=== PATIENT | female | born 1965 | race Caucasian/White ===

== ENCOUNTER 2018-11-27 05:20 | Inpatient (IN) | payer BC ==
[2018-11-26 12:23] LABS: HEMATOCRIT 39.8 % (36.0-47.0); HEMOGLOBIN 13.7 g/dL (12.0-15.5); MEAN CORPUSCULAR HEMOGLOBIN 28.3 pg (27.0-33.4); MEAN CORPUSCULAR HGB CONC 34.4 g/dL (32.0-36.0); MEAN CORPUSCULAR VOLUME 82 fl (80-97); PLATELET COUNT 259 10^3/uL (150-450); RED BLOOD COUNT 4.83 10^6/uL (3.72-5.28); RED CELL DISTRIBUTION WIDTH 12.8 % (11.5-14.0); WHITE BLOOD COUNT 5.6 10^3/uL (4.0-10.5)
[2018-11-26 12:30] LABS: APPEARANCE,URINE SLIGHTLY-CLOUDY; BILIRUBIN,URINE NEGATIVE (NEGATIVE); COLOR,URINE YELLOW; GLUCOSE, URINE NEGATIVE (NEGATIVE); KETONES,URINE NEGATIVE (NEGATIVE); LEUKOCYTE ESTERASE,URINE NEGATIVE (NEGATIVE); NITRITE,URINE NEGATIVE (NEGATIVE); PROTEIN,URINE NEGATIVE (NEGATIVE); URINE SPECIFIC GRAVITY 1.008; UROBILINOGEN,URINE NEGATIVE mg/dL (<2.0)
[2018-11-26 12:47] LABS: ALANINE AMINOTRANSFERASE 22 U/L (9-52); ALBUMIN 4.4 g/dL (3.5-5.0); ALKALINE PHOSPHATASE 55 U/L (38-126); ANION GAP 10 (5-19); ASPARTATE AMINO TRANSFERASE 24 U/L (14-36); BILIRUBIN,DIRECT 0.3 mg/dL (0.0-0.4); BILIRUBIN,TOTAL 0.6 mg/dL (0.2-1.3); BLOOD UREA NITROGEN 18 mg/dL (7-20); CALCIUM 9.4 mg/dL (8.4-10.2); CARBON DIOXIDE 30 mmol/L (22-30); CHLORIDE 101 mmol/L (98-107); GLUCOSE 95 mg/dL (75-110); POTASSIUM 4.1 mmol/L (3.6-5.0); SODIUM 141.3 mmol/L (137-145); TOTAL PROTEIN 7.5 g/dL (6.3-8.2)
--- NOTE | 2018-11-26 23:05 | EKG REPORT ---
SEVERITY:- NORMAL ECG - SINUS RHYTHM : Confirmed by: Luis Angel Summers 26-Nov-2018 23:05:10
[~2018-11-27 05:20] MED LIST: CEFAZOLIN 2 GM/D5W RTU 2 GM/50 ML RTUPB IV PRN; LACTATED RINGERS 1000 ML IV PRN; LIDOCAINE 0.5% INJ-PF (5 MG/ML) 50 ML SDV SUBCUT PRN
[2018-11-27] MEDS ORDERED: CEFAZOLIN 2 GM/D5W RTU 2 GM/50 ML RTUPB IV ONE (05:47)
[2018-11-27] MEDS ORDERED: EPHEDRINE SULFATE INJ 50 MG/1 ML AMPULE ONE (07:06)
[2018-11-27] MEDS ORDERED: FENTANYL CITRATE INJ/PF 100 MCG/2 ML AMPUL ONE (07:06)
[2018-11-27] MEDS ORDERED: MIDAZOLAM 2 MG/2 ML INJ ONE (07:06)
[2018-11-27] MEDS ORDERED: PROPOFOL INJ 200 MG/20 ML VIAL IV ONE (07:07)
[2018-11-27] MEDS ORDERED: ACETAMINOPHEN 1,000 MG/100 ML RTUPB IV ONE (07:07)
[2018-11-27] MEDS ORDERED: HYDROMORPHONE HCL INJ/PF 2 MG/ML AMPULE ONE (07:07)
[2018-11-27] MEDS ORDERED: ONDANSETRON HCL INJ/PF 4 MG/2 ML SDV IV PRN (08:07)
[2018-11-27] MEDS ORDERED: DIPHENHYDRAMINE HCL 50 MG/ML VIAL IV PRN (08:07)
[2018-11-27] MEDS ORDERED: OXYCODONE-ACETAMINOPHEN 5-325 MG TABLET PO PRN ×2 (08:07)
[2018-11-27] MEDS ORDERED: MEPERIDINE HCL/PF INJ 25 MG/1 ML DISP.SYRIN IV PRN (08:07)
[2018-11-27] MEDS ORDERED: FENTANYL CITRATE INJ/PF 100 MCG/2 ML AMPUL IV PRN ×3 (08:07)
[2018-11-27] MEDS ORDERED: METHYLENE BLUE 50 MG/10 ML AMPULE ONE (09:13)
[2018-11-27] MEDS ORDERED: SIMETHICONE 80 MG TAB.CHEW PO PRN (09:52)
[2018-11-27] MEDS ORDERED: MEASLES,MUMPS&RUBELLA VACC/PF 0.5 ML VIAL SUBCUT PRN (09:52)
[2018-11-27] MEDS ORDERED: PROMETHAZINE HCL INJ 25 MG/1 ML VIAL IV PRN (09:52)
[2018-11-27] MEDS ORDERED: HYDROMORPHONE HCL INJ/PF 2 MG/ML AMPULE IV PRN (09:52)
[2018-11-27] MEDS ORDERED: ACETAMINOPHEN 1,000 MG/100 ML RTUPB IV PRN (09:52)
[2018-11-27] MEDS ORDERED: ACETAMINOPHEN 325 MG TABLET PO PRN (09:52)
[2018-11-27] MEDS ORDERED: DIPH/PERTUSS(ACELL)/TETANUS VAC/PF 0.5 ML SYR (>=10YO) IM PRN (09:52)
[2018-11-27] MEDS: FENTANYL CITRATE INJ/PF 100 MCG/2 ML AMPUL ONE ×3 (10:00→10:10)
--- NOTE | 2018-11-27 10:05 | Operative Report ---
Operative Report DATE OF SURGERY: 11/27/18 PREOPERATIVE DIAGNOSIS: Fibroid uterus heavy menses pelvic pressure POSTOPERATIVE DIAGNOSIS: Same OPERATION: Total abdominal hysterectomy bilateral salpingectomy bilateral oophorectomy, cystoscopy SURGEON: ANDREA CUELLO ANESTHESIA: GA TISSUE REMOVED OR ALTERED: Uterus tubes ovaries cervix COMPLICATIONS: None ESTIMATED BLOOD LOSS: 280 cc INTRAOPERATIVE FINDINGS: Large fibroid uterus, small ovaries PROCEDURE: Patient was taken the OR and placed in supine position. General anesthesia was induced and she is placed in the dorsolithotomy position using Mateusz stirrups. Her abdomen perineum and vagina were prepared and draped in sterile fashion. A Brody was placed for drainage of the bladder. A low transverse incision was made and carried down the level of the fascia which was nicked in midline. The fascial incision was extended bilaterally using curved Jones scissors. The fascia was off the rectus muscles using sharp and blunt dissection. Rectus muscles were midline peritoneum entered without incident. The peritoneal incision was extended superiorly and inferiorly taking care not to injure bladder. The Iraj retractor was placed. The bowel contents were packed back with 3 moist lap sponges. The uterus was delivered through the incision and grasped with Sindhu thyroid clamp. The round ligaments were identified and then were clamped cauterized and cut using the LigaSure device. The anterior leaf of the broad ligament was incised creating a bladder flap. The bladder was taken off the anterior aspect of the cervix using sharp and blunt dissection. The posterior leaf the broad ligament was incised isolating the infundibulopelvic pedicles. Because of the large fibroid uterus these were well out away from the pelvic sidewall. The infundibulopelvic pedicles were clamped cauterized and cut with the LigaSure device bilaterally. The ovaries and tubes were passed off the field. Next the uterine arteries were skeletonized bilaterally. The uterine arteries were then clamped ligated and cut using LigaSure device. The cervical stump was then incised amputating the uterine body and the uterine body was passed off the field. The cervical stump was grasped with Tonya clamps. Straight Emily clamps were used to clamp directly next to the cervical stump. This was the cardinal ligament pedicle bilaterally. The tissue was incised and ligated with a Valencia transfixation suture of 0 Vicryl bilaterally. Curved Emily clamps were then used to come across the vaginal angles bilaterally. The tissue was cut and the cervix was excised free from the vaginal cuff. Angle sutures of 0 Vicryl were placed bilaterally and the cuff was closed with interrupted 0 Vicryl sutures. The pelvis was then irrigated and suctioned free of fluid. Hemostasis at the pedicles was confirmed. The ureters were seen bilaterally at the pelvic brim and were not dilated and both were peristalsing. The appendix was also seen and was small and normal-appearing. Next the lap sponges and retractor were removed. The bowel was allowed to settle in its natural configuration. The anterior abdominal wall peritoneum was closed with a running 2-0 chromic stitch. The subfascial tissues were inspected for bleeding the fascia was closed with a running 0 Vicryl in 2 segments. The wound was irrigated and Hien's layer was closed with a 2-0 plain gut stitch and skin closed with a running subcuticular 4-0 undyed Vicryl stitch. Dressing was applied. Cystoscopy was performed at the end of the case. Ureteral jets could be seen at both ureters. There is no evidence of injury to the bladder. The case was stopped patient extubated in the operating room and taken to recovery room in stable condition.
[2018-11-27] MEDS: OXYCODONE-ACETAMINOPHEN 5-325 MG TABLET PO PRN ×2 (12:07→17:25)
[2018-11-27] MEDS ORDERED: METOCLOPRAMIDE HCL INJ/PF 10 MG/2 ML SDV ONE (14:04)
[2018-11-27] MEDS ORDERED: KETOROLAC TROMETHAMINE 60 MG/2 ML SDV ONE (14:04)
[2018-11-27] MEDS ORDERED: ROCURONIUM BROMIDE INJ 50 MG/5 ML VIAL IV ONE (14:04)
[2018-11-27] MEDS ORDERED: PHENYLEPHRINE HCL INJ/PF 10 MG/1 ML SDV ONE (14:04)
[2018-11-27] MEDS ORDERED: GLYCOPYRROLATE 1 MG/5 ML SYRINGE ONE (14:04)
[2018-11-27] MEDS ORDERED: DEXAMETHASONE SOD PHOSPHATE INJ 4 MG/1 ML VIAL ONE (14:04)
[2018-11-27] MEDS ORDERED: LIDOCAINE 2% INJ-PF (20 MG/ML) 2 ML AMPUL ONE (14:04)
[2018-11-27] MEDS ORDERED: NEOSTIGMINE METHYLSULFATE 10 MG/10 ML VIAL ONE (14:04)
[2018-11-27] MEDS ORDERED: ONDANSETRON HCL INJ/PF 4 MG/2 ML SDV ONE (14:04)
[2018-11-27 16:35] LABS: HEMATOCRIT 33.9 % (36.0-47.0); HEMOGLOBIN 11.7 g/dL (12.0-15.5); MEAN CORPUSCULAR HEMOGLOBIN 28.3 pg (27.0-33.4); MEAN CORPUSCULAR HGB CONC 34.4 g/dL (32.0-36.0); MEAN CORPUSCULAR VOLUME 83 fl (80-97); PLATELET COUNT 219 10^3/uL (150-450); RED BLOOD COUNT 4.12 10^6/uL (3.72-5.28); RED CELL DISTRIBUTION WIDTH 13.1 % (11.5-14.0)
[2018-11-27 16:50] LABS: WHITE BLOOD COUNT 11.8 10^3/uL (4.0-10.5)
[2018-11-27 16:52] LABS: ABSOLUTE LYMPHOCYTES# (MANUAL) 0.4 10^3/uL (0.5-4.7); ABSOLUTE MONOCYTES # (MANUAL) 0.2 10^3/uL (0.1-1.4); ABSOLUTE NEUTROPHILS# (MANUAL) 11.2 10^3/uL (1.7-8.2); BASOPHILS % (MANUAL) 0 % (0-2); EOSINOPHILS % (MANUAL) 0 % (0-6); LYMPHOCYTES % (MANUAL) 3 % (13-45); MONOCYTES % (MANUAL) 2 % (3-13); PLATELET COMMENT ADEQUATE; RBC MORPHOLOGY COMMENT NORMO-CYTIC/CHROMIC; SEGMENTED NEUTROPHILS % (MAN) 95 % (42-78); TOTAL CELLS COUNTED 100
[2018-11-27 16:58] LABS: ANION GAP 8 (5-19); BLOOD UREA NITROGEN 14 mg/dL (7-20); CALCIUM 8.8 mg/dL (8.4-10.2); CARBON DIOXIDE 29 mmol/L (22-30); CHLORIDE 101 mmol/L (98-107); GLUCOSE 167 mg/dL (75-110); POTASSIUM 3.3 mmol/L (3.6-5.0); SODIUM 138.4 mmol/L (137-145)
[2018-11-27] MEDS: DOCUSATE SODIUM 100 MG CAPSULE PO SCH (17:25)
[2018-11-27] MEDS: KETOROLAC TROMETHAMINE INJ/PF 30 MG/1 ML SDV IV SCH (17:26)
[2018-11-27] MEDS: RINGERS SOLUTION,LACTATED 1,000 ML IV PRN (19:15)
[2018-11-28] MEDS: OXYCODONE-ACETAMINOPHEN 5-325 MG TABLET PO PRN ×3 (00:07→11:47)
[2018-11-28] MEDS: KETOROLAC TROMETHAMINE INJ/PF 30 MG/1 ML SDV IV SCH ×2 (02:00→10:17)
[2018-11-28] MEDS: RINGERS SOLUTION,LACTATED 1,000 ML IV PRN (03:15)
[2018-11-28 07:51] LABS: HEMATOCRIT 28.9 % (36.0-47.0); HEMOGLOBIN 10.2 g/dL (12.0-15.5); MEAN CORPUSCULAR HGB CONC 35.3 g/dL (32.0-36.0); MEAN CORPUSCULAR VOLUME 82 fl (80-97); PLATELET COUNT 195 10^3/uL (150-450); RED BLOOD COUNT 3.52 10^6/uL (3.72-5.28); RED CELL DISTRIBUTION WIDTH 12.8 % (11.5-14.0); WHITE BLOOD COUNT 9.5 10^3/uL (4.0-10.5)
[2018-11-28] MEDS ORDERED: PRENATAL VITAMIN W DHA CAPSULE PO SCH (10:00)
[2018-11-28] MEDS: DOCUSATE SODIUM 100 MG CAPSULE PO SCH (10:18)
--- NOTE | 2018-11-28 11:44 | PDOC DISCHARGE SUMMARY ---
General - Admit/Disc Date/PCP Admission Date/Primary Care Provider: 11/27/18 05:20 POLLY ZAMBRANO NP Discharge Date: 11/28/18 - Discharge Diagnosis (1) Uterine fibroid Is this a current diagnosis for this admission?: Yes - Additional Information Home Medications: Lisinopril/Hydrochlorothiazide [Lisinopril-Hctz 10-12.5 mg Tab] 1 each PO DAILY 11/26/18 Phentermine HCl [Adipex-P] 37.5 mg PO DAILY 11/26/18 History of Present Illness Patient complains of: She reports some gas pains today. Regardless she would like to go home today. History of Present Illness: MARLO ROLLINS is a 52 year old female She underwent an abdominal hysterectomy yesterday. She has done well. She does complain of some gas pains today but would still like to go home today. Hospital Course Hospital Course: Her catheter came out today and she is tolerating oral pain meds. She is able to ambulate and would like to go home today. Physical Exam - Physical Exam Vital Signs: Temp Pulse Resp BP Pulse Ox 98.5 F 83 20 121/62 97 11/28/18 07:17 11/28/18 07:17 11/28/18 07:17 11/28/18 07:17 11/28/18 07:17 Intake & Output 11/27/18 11/28/18 11/29/18 06:59 06:59 06:59 Intake Total 0 4900 Output Total 2480 50 Balance 0 2420 -50 Weight 67.59 kg 68.1 kg General appearance: PRESENT: no acute distress, well-developed, well-nourished Head exam: PRESENT: atraumatic, normocephalic GI/Abdominal exam: PRESENT: normal bowel sounds - dressing dry Result Laboratory Results: 11/28/18 07:05 11/27/18 16:11 11/27/18 11/27/18 11/28/18 16:11 16:11 07:05 WBC 11.8 H D 9.5 RBC 4.12 3.52 L Hgb 11.7 L 10.2 L Hct 33.9 L 28.9 L MCV 83 82 MCH 28.3 29.0 MCHC 34.4 35.3 RDW 13.1 12.8 Plt Count 219 195 Seg Neutrophils % Not Reportable Lymphocytes % Not Reportable Monocytes % Not Reportable Eosinophils % Not Reportable Basophils % Not Reportable Absolute Neutrophils Not Reportable Absolute Lymphocytes Not Reportable Absolute Monocytes Not Reportable Absolute Eosinophils Not Reportable Absolute Basophils Not Reportable Sodium 138.4 Potassium 3.3 L Chloride 101 Carbon Dioxide 29 Anion Gap 8 BUN 14 Creatinine 0.46 L Est GFR ( Amer) > 60 Est GFR (Non-Af Amer) > 60 Glucose 167 H Calcium 8.8 Impressions: Pod number one. Plan Discharge Plan: Home today to rest with followup next week. May shower, no driving. Time Spent: Less than 30 Minutes Acute Heart Failure Is this a Heart Failure Patient?: No
[2018-11-28 11:59] VITALS: BP 128/83
[2018-11-28] MEDS ORDERED: IBUPROFEN 800 MG TABLET PO SCH (12:00)
== END 2018-11-28 12:25 | disposition home or self-care (01) | DRG 743 ==
LOC: INOR 05:20 → 2N 11:20
PROVIDERS: ADMIT Obstetrics & Gynecology; ATTEND Obstetrics & Gynecology
PROC: 0UT70ZZ Resection of Bilateral Fallopian Tubes, Open Approach (ICD-10-PCS; 2018-11-27)
PROC: 0UT90ZZ Resection of Uterus, Open Approach (ICD-10-PCS; principal; 2018-11-27 07:30)
PROC: 0UT20ZZ Resection of Bilateral Ovaries, Open Approach (ICD-10-PCS; 2018-11-27 07:30)
DX: D25.9 Leiomyoma of uterus, unspecified (principal); N92.0 Excessive and frequent menstruation with regular cycle; I10 Essential (primary) hypertension
CPT/HCPCS: 36415; 80048; 80053; 81001; 81025; 85025; 85027; 86850; 86900; 86901; 88307; 93005; 93010; 94799; J0131; J0690; J1100; J1170; J1885; J2250; J2370; J2405; J2704; J2710; J2765; J3010; J3490; J7120; Q9968